=== PATIENT | female | born 1945 | race Caucasian/White ===

== ENCOUNTER 2016-04-26 11:59 | Outpatient (CLI) | payer MEDICARE, OTHER ==
[2015-01-20 11:00] VITALS: BP 127/76
[2016-04-26 12:22] LABS: BASOPHILS % 0.6 (0.0-1.5); EOSINOPHILS % 2.2 % (0.0-6.8); LYMPHOCYTES # 2.4 # k/uL (0.6-4.0); MEAN CORPUSCULAR HEMOGLOBIN 35.7 pg (28.0-34.0); MONOCYTES # 0.8 # k/uL (0.0-0.9); MONOCYTES % 7.3 % (0.0-11.0); NEUTROPHILS # 7.7 # k/uL (1.4-7.7)
[2016-04-26 14:55] LABS: APPEARANCE,URINE Clear (CLEAR); COLOR,URINE Yellow (YELLOW); OCCULT BLOOD,URINE Trace-intact (NEGATIVE); UROBILINOGEN URINE 0.2 Eu (0.2-1.0)
[2016-04-26 15:02] LABS: AMORPHOUS SEDIMENT,UR FEW (NEGATIVE)
[2016-04-26 21:31] LABS: TOTAL PROTEIN 7.3 g/dL (6.0-8.5)
== END 2016-04-26 12:00 ==
LOC: LAB 11:59
PROVIDERS: ATTEND Family Medicine
DX: I10 Essential (primary) hypertension (principal); D64.9 Anemia, unspecified; R10.13 Epigastric pain; R10.9 Unspecified abdominal pain
CPT/HCPCS: 36415; 80053; 81002; 82150; 85025

== ENCOUNTER 2016-05-10 15:27 | Outpatient (CLI) | payer MEDICARE, OTHER ==
[2015-01-20 11:00] VITALS: BP 127/76
--- NOTE | 2016-05-10 16:42 | Diagnostic Imaging Report ---
[facility] [address] [facility] [address] [address] Report Submission Date: May 10, 2016 4:39:31 PM CYLINDER FILLER Patient Study Name: CHANDLER MCCULLOUGH Date: May 10, 2016 3:37:58 PM CYLINDER FILLER Modality Type: CR Gender: F Description: PELVIS : 47 Institution: [facility] Physician: PEMA BRIAN - OP AP view of the pelvis Clinical history: Chronic pelvic and back pain There is moderate osteoarthrosis of both hip joints. No fracture, dislocation or bone destruction. Low back surgery with hardware and graft material is seen in the lower lumbar region. Impression: Moderate osteoarthrosis of both hip joints Status post lumbar spine surgery with hardware and graft material are seen Electronically signed on May 10, 2016 4:39:31 PM CYLINDER FILLER by: Keenan AGUILERA
--- NOTE | 2016-05-10 17:06 | Diagnostic Imaging Report ---
[facility] [address] [facility].[address] [id number] Report Submission Date: May 10, 2016 5:03:26 PM CHIEF ANALYTICS OFFICER Patient Study Name: CHANDLER MCCULLOUGH Date: May 10, 2016 3:39:45 PM CHIEF ANALYTICS OFFICER Modality Type: CR Gender: F Description: SPINE : 47 Institution: [facility] Physician: BRIAN MCADAMS - OP Lumbar spine 4 views Clinical history: Chronic low back pain, prior back surgery Mild levoscoliosis. Hardware extending from T12 down to S1 . Disc spacer at L2/L3, L3/L4 and L4 /L5 . Degenerated narrowed disc at L5/S1 . All hardware is in good position . Thoracic spondylosis with post laminectomy at L2 L3, L4 . Impression: Mild levoscoliosis, osteoarthrosis with status post laminectomy . Hardware extending from T12 down to S1 No fractures Electronically signed on May 10, 2016 5:03:26 PM CHIEF ANALYTICS OFFICER by: Keenan AGUILERA
== END 2016-05-10 15:30 ==
LOC: RAD 15:27
PROVIDERS: ATTEND Family Medicine
DX: M25.551 Pain in right hip (principal); M54.5 Low back pain
CPT/HCPCS: 72110; 72170

== ENCOUNTER 2016-06-21 12:20 | Outpatient (CLI) | payer MEDICARE, OTHER ==
[2015-01-20 11:00] VITALS: BP 127/76
[~2016-06-21 12:20] MED LIST: 0.9 % SODIUM CHLORIDE PF 10 ML VIAL IJ ONE; BUPIVACAINE HCL/PF 2.5 MG/ML 10ML VIAL IV ONE; Lidocaine 1% 5ml(IM or SUTURE)(PAIN CLINIC) ONE; TRIAMCINOLONE ACETONID 40MG/ML VIAL ONE
--- NOTE | 2016-07-06 15:12 | HISTORY AND PHYSICAL REPORT ---
REFERRING PHYSICIAN: Dr. Mo Blanchard Dear Mo: HISTORY OF PRESENT ILLNESS: I had the opportunity of seeing Sabrina Estrada today as an outpatient at [facility]. This is a very nice 71-year-old white female who presents with axial low back pain and right hip pain radiating into both legs in to both feet. She was seen some time in the remote past by my former partner , Dr. Pan, who had treated her. She also was seen by Dr. Rod Londono and had a surgical decompression done prior to that by Dr. Terry for surgical decompression. She says the back and legs hurt. She was started on prednisone 5 mg daily and that seemed to help. She has also realized physical therapy, nonsteroidal antiinflammatories, and Tylenol. She says the pain can be as severe as 10 over 10 on a visual analog scale or as low as 6 over 10 on a visual analog scale. She has a history of rheumatoid arthritis and osteoarthritis that has been treated by Dr. Rizvi. She says the pain is worse with lying down and worse with being on her feet. PAST MEDICAL HISTORY: 1. History of rheumatoid arthritis. 2. Osteoarthritis. 3. Breast cancer. 4. Trochanteric bursitis. 5. Hypertension. 6. Crohn's disease. PAST SURGICAL HISTORY: 1. Left lumpectomy. 2. Basal cell carcinoma removed from her face. 3. Cataracts removed with lens implants. 4. Hand surgery x3. 5. Lumbar surgeries x6. Five of those by Dr[address] Rod Londono, the last one in 2009. 6. Previous lumbar injections by Dr. Pan prior to 2009. CURRENT DAILY MEDICATIONS: 1. Aspirin 81 mg daily. 2. Digestive probiotic 250 mg daily. 3. Calcium 600 mg daily. 4. Vitamin D 400 mg daily. 5. Multivitamin daily. 6. Atenolol 50 mg b.i.d. 7. Lisinopril 40 mg daily. 8. Eluxadoline 100 mg b.i.d. 9. Potassium 20 mEq b.i.d. 10. HCTZ 25 mg daily. 11. Prednisone 5 mg b.i.d. 12. Meclizine 25 mg p.r.n. ALLERGIES: 1. Codeine. 2. General anesthesia causes nausea and vomiting. SOCIAL HISTORY: She denies tobacco, alcohol, or recreational drugs. Unknown marital status. Unknown occupation or employment status. FAMILY HISTORY: Father with cardiovascular disease, diabetes, and multiple skin cancers. Mother with DJD. REVIEW OF SYSTEMS: In the past month or so, she has had no complaints. Pain is worsened with lying flat and with walking. Pain is improved with frequently changing positions. PHYSICAL EXAMINATION: Vital Signs: BP: 130/82, P: 60, R: 16, T: 97.5, oxygen saturation 96% on room air. General: The patient is well nourished, well developed, and in no apparent distress. Awake, alert, and oriented. HEENT: Pupils are equal, round, and reactive to light and accommodation. Extraocular movements intact. No facial droop. Neck: There is full range of motion of the cervical spine. No evidence of adenopathy. Thyroid is nontender, no enlarged. Carotids are without bruits. Chest: Clear to auscultation bilaterally. Normal. Chest excursion. Heart: Regular rate and rhythm without murmur. Abdomen: Benign. Normoactive bowel sounds. Motor/sensory: Intact in the upper and lower extremities. Moves all extremities freely. Back: There are normal cervical, thoracic and lumbar curvatures. There are negative sacroiliac joint findings bilaterally. No evidence of pain or tenderness over the facet joints. Negative piriformis bilaterally. Negative straight leg raise. No evidence of dermatomal weakness or numbness in the lower extremities. Bilateral negative femoral nerve stretch. Patellar tendons are 2+ and equal bilaterally. ASSESSMENT: 1. Lumbar radiculitis. 2. History of neurogenic claudication. PLAN: Plan for caudal epidural steroid injection today under fluoroscopy. cc: Dr. Mo AGUILERA
--- NOTE | 2016-07-06 15:27 | CAUDAL ESI WITH FLUORO ---
REFERRING PHYSICIAN: Dr. Mo Blanchard PROCEDURE: Caudal epidural steroid injection under fluoroscopy. DESCRIPTION OF PROCEDURE: The risks and benefits of a caudal epidural steroid injection were explained to the patient, including the risk of infection, bleeding, nerve injury, worsened pain, failure to relieve pain, spinal headache or steroid exposure risks, including hyperglycemia, hypertension, osteoporosis, and increased infectious risks. The patient understood the risks and agreed to proceed. The patient was positioned prone on the fluoroscopic procedure table and a sterile prep and drape were applied. Under AP and lateral fluoroscopic imaging , a number 25-gauge needle was advanced into the cornu of the sacrum and into the sacral hiatus. Under direct visualization, contrast was placed which revealed adequate spread within the caudal epidural space and following this, triamcinolone mixed with lidocaine and bupivacaine and preservative-free saline was placed. The needle was withdrawn. The patient tolerated the procedure well. There were no apparent complications. She was discharged home in good condition. ASSESSMENT: 1. Lumbar radiculitis. 2. History of neurogenic claudication. FOLLOW UP: Patient is to call for complications or worsened pain. cc: Dr. Mo AGUILERA
== END 2016-06-21 12:21 ==
LOC: OUT 12:20
PROVIDERS: ATTEND Anesthesiology Pain Medicine
DX: M54.16 Radiculopathy, lumbar region (principal); Z86.69 Personal history of other diseases of the nervous system and sense organs
CPT/HCPCS: J3301; J3490; 99214; G0463

== ENCOUNTER 2016-07-19 10:16 | Outpatient (CLI) | payer MEDICARE, OTHER ==
[2015-01-20 11:00] VITALS: BP 127/76
--- NOTE | 2016-07-20 15:39 | CAUDAL ESI WITH FLUORO ---
SUBJECTIVE: Ms. Estrada comes in today in follow up. She is much improved after a caudal epidural injection. She said she is still having some back and hip pain and she has a history of an L4-L5 and L5-S1 fusion. PLAN: I plan today to repeat the caudal epidural steroid injection and then follow her up on an as needed basis. PROCEDURE: Caudal epidural steroid injection: DESCRIPTION OF PROCEDURE: The risks and benefits of a caudal epidural steroid injection were explained to the patient, including the risk of infection, bleeding, nerve injury, worsened pain, failure to relieve pain, spinal headache or steroid exposure risks, including hyperglycemia, hypertension, osteoporosis, and increased infectious risks. The patient understood the risks and agreed to proceed. The patient was placed on the fluoroscopy table in the prone position with a pillow underneath the abdomen. The caudal area was cleaned. AP and lateral fluoroscopic views were obtained, identifying the sacrum and sacral hiatus. The caudal epidural space was accessed from a percutaneous approach at the sacral hiatus with an 25-gauge, 1-1/5 inch needle. On entering the caudal epidural space, it was verified that there was no aspiration of blood or CSF or urine. Furthermore, the needle tip location was verified with lateral and AP fluoroscopic views. Omnipaque 240 myelogram dye was injected through the needle. The distribution of the dye was noted to be within the desired distribution within the caudal epidural space. At this point, triamcinolone acetate and 1% lidocaine was injected into the caudal epidural space. The stylette was replaced in the needle and the needle was subsequently removed from the back. The patient tolerated the procedure without adverse sequelae. The sacral area was cleaned and a bandage was applied over the injection site. The patient was then monitored for 20 minutes following the procedure, during which time the vital signs remained stable and no adverse sequelae were noted or reported. The patient was discharged home with a warehouse driver and was in good condition on discharge. ASSESSMENT: Lumbar radiculitis/neuritis. FOLLOW UP: Follow her up on an as-needed basis. cc: Dr. Mo AGUILERA
== END 2016-07-19 10:17 ==
LOC: OUT 10:16
PROVIDERS: ATTEND Anesthesiology Pain Medicine
DX: M54.16 Radiculopathy, lumbar region (principal)
CPT/HCPCS: J3301; Q9966; 99214; G0463

== ENCOUNTER 2016-08-23 10:15 | Outpatient (CLI) | payer MEDICARE, OTHER ==
[2015-01-20 11:00] VITALS: BP 127/76
--- NOTE | 2016-08-23 14:30 | CAUDAL ESI WITH FLUORO ---
REFERRING PHYSICIAN: Dr. Mo Blanchard Dear Mo: SUBJECTIVE: I had the opportunity of following up with Ms. Estrada today. She follows up after a caudal epidural steroid injection and she is much improved. She is still having some low back pain and I am going to plan on repeating a caudal epidural steroid injection today under fluoroscopy and follow her up on an as needed basis or if her symptoms should worsen or reoccur. PROCEDURE: Caudal epidural steroid injection under fluoroscopy. DESCRIPTION OF PROCEDURE: The risks and benefits of a caudal epidural steroid injection were explained to the patient, including the risk of infection, bleeding, nerve injury, worsened pain, failure to relieve pain, spinal headache or steroid exposure risks, including hyperglycemia, hypertension, osteoporosis, and increased infectious risks. The patient understood the risks and agreed to proceed. The patient was placed on the fluoroscopy table in the prone position with a pillow underneath the abdomen. The caudal area was cleaned. AP and lateral fluoroscopic views were obtained, identifying the sacrum and sacral hiatus. The caudal epidural space was accessed from a percutaneous approach at the sacral hiatus with a 25-gauge 1-1/2-inch needle. On entering the caudal epidural space , it was verified that there was no aspiration of blood or CSF or urine. Furthermore, the needle tip location was verified with lateral and AP fluoroscopic views. Omnipaque 240 myelogram dye was injected through the needle. The distribution of the dye was noted to be within the desired distribution within the caudal epidural space. The patient did report some reproduction of pain symptoms; this reproduction of symptoms was short-lived. Triamcinolone acetate and 1% lidocaine was injected into the caudal epidural space. The stylette was replaced in the needle and the needle was subsequently removed from the back. The patient tolerated the procedure without adverse sequelae. The sacral area was cleaned and a bandage was applied over the injection site. The patient was then monitored for 20 minutes following the procedure, during which time the vital signs remained stable and no adverse sequelae were noted or reported. The patient was discharged home with a mixer driver and was in good condition on discharge. ASSESSMENT: 1. Lumbosacral radiculitis/neuritis. 2. Failed laminectomy pain syndrome. PLAN: Caudal epidural steroid injection under fluoroscopy. FOLLOW UP: Follow up on a p.r.n. basis or if her symptoms should worsen or reoccur. cc: Dr. Mo AGUILERA
== END 2016-08-23 10:16 ==
LOC: OUT 10:15
PROVIDERS: ATTEND Anesthesiology Pain Medicine
DX: M54.16 Radiculopathy, lumbar region (principal)
CPT/HCPCS: 99214; G0463; J3301; Q9966

== ENCOUNTER 2016-11-15 18:28 | Emergency (ER) | payer MEDICARE, OTHER ==
[2016-11-15] MEDS: 0.9 % SODIUM CHLORIDE 1,000 ML IV ONE (18:42)
[2016-11-15] MEDS: ONDANSETRON HCL/PF 4 MG/ 2ML VIAL IVP ONE (18:45)
--- NOTE | 2016-11-15 18:48 | ED Physician Documentation ---
Nausea/Vomiting/Diarrhea - HISTORIAN Historian: patient - HPI Chief Complaint: Nausea,Vomiting,Diarrhea Onset: other (yesterday) Timing: worse Context: denies: out of country travel, bad food, recent trauma Severity: severe Further Comments: yes (71 year old female patient presents with complaint of watery diarrhea since yesterday, reports nausea and vomiting today. Unable to keep down po's today, unable to take daily meds today due to Nausea. C/O generalized abdominal pain.) - Associated Symptoms Vomiting: mild Diarrhea: watery Abdominal Pain: cramping, aching, moderate, diffuse - ROS CONST: denies: fever, sweating, chills CVS/RESP: denies: chest pain, shortness of breath, cough, dry cough, non- productive cough, productive cough, bloody cough GI/: none. denies: constipation, black stools, bloody urine, bloody stools, dark urine, problems urinating EYES/ENT: none MS/SKIN/LYMPH: denies: joint pain, leg swelling, rash, swollen glands, ankle swelling, other NEURO/PSYCH: none - PAST HX Past History: other (Aneursym "between pancreas and spleen, stented") Other History: IBS (IBSD), hypertension, other (History of breast CA, OA, RA, Crohns) Surgeries/Procedures: hysterectomy, other (Lumbar x 6) Allergies/Adverse Reactions: Allergies Allergy/AdvReac Type Severity Reaction Status Date / Time alosetron Allergy Verified 11/15/16 19:04 rifaximin [From Xifaxan] Allergy Verified 11/15/16 19:04 codeine AdvReac Mild Hyperactivi Verified 11/15/16 20:10 ty Home Medications: Ambulatory Orders Medication Instructions Recorded Calcium Carb 600Mg/Vit D-3 400 1 each PO DAILY 06/02/14 [Caltrate with Vit D-3] Multivitamin [Tab-A-Leonel] 1 each PO DAILY 06/02/14 Viberzi 100 mg PO BID u2 09/01/15 Acetaminophen/Diphenhydramine 2 tab PO PM 11/15/16 [Tylenol Pm Ex-Strength Caplet] Chlorthalidone [Thalitone] 25 mg PO DAILY 11/15/16 L.acidoph & Paracasei,B.lactis 1 tab PO AM 11/15/16 [Probiotic] Meclizine HCl [Meclizine HCl] 25 mg PO Q6 PRN 11/15/16 - SOCIAL HX Smoking History: non-smoker - FAMILY HX Family History: denies: none - VITAL SIGNS Vital Signs: Vital Signs Temp Pulse Resp BP Pulse Ox 98.7 F 96 H 16 164/123 97 11/15/16 18:55 11/15/16 18:55 11/15/16 18:55 11/15/16 18:55 11/15/16 23:00 - REVIEWED ASSESSMENTS Nursing Assessment Reviewed: Yes Vitals Reviewed: Yes Progress - Progress Progress: Medicated with zofran for nausea on arrival Continued nausea - second dose of zofran IV given. Reviewed lab and CT findings with patient and ; recommended transfer to higher level of care for continue IV fluids, antibiotics and evaluation of gall stone. Patient prefers transfer to [place]. 2203 [facility] to [place] [phone] Doan, requested Magnesium level; lab is send out. - EKG/XRAY/CT EKG: rhythm (Sinus arrhythmia, rate 70, occassional PVC on dev ops engineer) ED Results Lab/Radiology - Lab Results Lab Results: Lab Results 11/15/16 11/15/16 18:51 18:51 WBC 13.60 K/ul H K/ul (4.00-12.00) RBC 4.01 M/ul M/ul (3.90-5.20) Hgb 13.8 g/dL g/dL (12.0-16.0) Hct 41.1 % % (34.5-46.5) MCV 102.6 fl H fl (80.0-100.0) MCH 34.5 pg H pg (28.0-34.0) MCHC 33.7 g/dL g/dL (30.0-36.0) RDW 12.5 % % (11.3-14.3) Plt Count 294 K/mm3 K/mm3 (130-400) Neut % (Auto) 64.9 % % (39.0-79.0) Lymph % (Auto) 23.0 % % (16.0-50.0) [place] % (Auto) 6.8 % % (0.0-11.0) Eos % (Auto) 2.8 % % (0.0-6.8) Baso % (Auto) 0.6 (0.0-1.5) Neut # (Auto) 8.8 # k/uL H # k/uL (1.4-7.7) Lymph # (Auto) 3.1 # k/uL # k/uL (0.6-4.0) [place] # (Auto) 0.9 # k/uL # k/uL (0.0-0.9) Eos # (Auto) 0.4 # k/uL # k/uL (0.0-0.6) Baso # (Auto) 0.1 # k/uL # k/uL (0.0-0.5) Reactive Lymphs % 1.8 % % (0.0-5.0) Reactive Lymphs # 0.2 # k/uL # k/uL (0.0-0.8) Sodium 138 mmol/L mmol/L (136-145) Potassium 2.6 mmol/L L mmol/L (3.5-5.0) Chloride 101 mmol/L mmol/L (98-110) Carbon Dioxide 24 mmol/L mmol/L (20-32) BUN 12 mg/dL mg/dL (10-26) Creatinine 0.6 mg/dL mg/dL (0.4-1.5) Estimated Creat Clear 106 Est GFR ( Amer) > 60 (60 - ) Est GFR (Non-Af Amer) > 60 (60 - ) Glucose 117 mg/dL H mg/dL (70-99) Calcium 9.8 mg/dL mg/dL (8.5-10.5) Total Bilirubin 0.9 mg/dL mg/dL (0.2-1.2) AST 27 U/L U/L (0-41) ALT 20 U/L U/L (0-45) Alkaline Phosphatase 58 U/L U/L (46-116) Total Protein 7.3 g/dL g/dL (6.0-8.5) Albumin 4.5 g/dL g/dL (3.0-5.5) - Radiology Radiology Impressions: Examination: CT Abdomen/pelvis History: Generalized abdominal discomfort Comparison exams: None available Technique: CT Abdomen/pelvis with IV protocol. Findings: Liver demonstrates diffuse low attenuation. Cyst within the left hepatic lobe. Spleen, adrenals, pancreas, and kidneys are without gross irregularity. No abnormal enhancement. Gallbladder is slightly prominent with faint gallstones near the fundus. Left kidney inferior calyx calcification. Ureters do not appear to be dilated in their course of through the abdomen and pelvis. No central calcification. Numerous pelvic phleboliths. Significant streak artifact from metal artifact within the left upper abdomen adjacent to the spleen. Abdominal aorta demonstrates mild peripheral atherosclerotic disease. No aneurysm. Bowel unopacified limiting evaluation. Few small bowel air fluid levels with mild luminal prominence. Stool within the large bowel limiting sensitivity. No mesenteric inflammatory changes or free fluid. Osseous structures demonstrate degenerative changes. Lumbar fixation hardware with streak artifact. Lung bases demonstrate significant scarring and atelectasis. No effusion. Impression: 1. Prominent gallbladder with fundal gallstones. No adjacent inflammatory changes. Consider obtaining right upper quadrant ultrasound if clinically warranted. 2. Left nephrolithiasis. No ureterolithiasis. 3. Few small bowel air fluid levels with some mild luminal prominence - mild enteritis. 4. Fatty liver. Extensive lung base scarring and atelectasis. No effusion. Electronically signed on Nov 15, 2016 9:12:19 PM CDT by: Justus Prater - Orders Orders: ED Orders Category Date Time Status Continuous Pulse Oximetry Q30M Care 11/15/16 19:[address] IV Lock 1T Care 11/15/16 18:[address] ABD & PELVIS W/ CON Stat Exams 11/15/16 Completed BLOOD CULTURE Stat Lab 11/15/16 Ordered CBC/PLATELET/DIFF Stat Lab 11/15/16 18:51 Completed CMP Stat Lab 11/15/16 18:51 Completed UA W/MICRO IF INDICATED Stat Lab 11/15/16 18:41 Ordered 0.9 % Sodium Chloride [Normal Saline] 1,000 ml Med 11/15/16 18:41 Discontinued IV NOW 0.9 % Sodium Chloride [Sodium Chloride] 50 ml Med 11/15/16 22:08 Discontinued IV .STK-MED Ondansetron HCl/Pf [Zofran 4 mg/2 ml] Med 11/15/16 18:41 Discontinued 4 mg IVP NOW ONE [facility] Med 11/15/16 22:09 Discontinued 1 each MC .STK-MED ONE Piperacillin Sodium/Tazobactam [Zosyn] Med 11/15/16 22:07 Discontinued 3.375 gm IV .STK-MED ONE Piperacillin Sodium/Tazobactam [Zosyn] 3.375 gm Med 11/15/16 22:00 Ordered 0.9 % Sodium Chloride [Sodium Chloride] 50 ml IV Q6 Potas Chlor 20 in D5-1/2Ns [D51/4SIBWF27] 1,000 ml Med 11/15/16 22:00 Ordered IV Q8H Potassium Chloride [Klor-Con 20 Meq/10Ml] Med 11/15/16 19:45 Discontinued 20 meq IV NOW ONE EKG WITH COMPARISON Stat Ther 11/15/16 19:52 Ordered Nausea Physical Exam - EXAM General Appearance: moderate distress EENT: eye inspection normal, ENT inspection normal, pharynx normal, no signs of dehydration, MARIA DE JESUS, no nystagmus, TM's nml Respiratory: no resp distress, chest non-tender, breath sounds normal CVS: reg rate & rhythm, heart sounds normal, equal pulses, no murmur, no gallop , PMI nml, no JVD, no friction rub, 24 Abdomen: tenderness (generalized), guarding, abnml bowel sounds, other ( generalized tenderness - diffuse; worse in epigastic and LLQ). 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 Neuro/Psych: oriented X3, CN's nml as tested, motor nml, sensation nml, mood/ affect nml Discharge Clincal Impression: Hypokalemia Nausea and vomiting Qualifiers: Vomiting type: unspecified Vomiting Intractability: non-intractable Qualified Code(s): R11.2 - Nausea with vomiting, unspecified Cholelithiasis Qualifiers: Cholelithiasis location: gallbladder Cholecystitis presence: without cholecystitis Biliary obstruction: without biliary obstruction Qualified Code(s) : K80.20 - Calculus of gallbladder without cholecystitis without obstruction Diarrhea Qualifiers: Diarrhea type: unspecified type Qualified Code(s): R19.7 - Diarrhea, unspecified Referrals: Mo Blanchard MD [Primary Care Provider] - 2 Days Home Medications: Ambulatory Orders Calcium Carb 600Mg/Vit D-3 400 [Caltrate with Vit D-3] 1 each PO DAILY 06/02/14 Multivitamin [Tab-A-Leonel] 1 each PO DAILY 06/02/14 Viberzi 100 mg PO BID u2 09/01/15 Acetaminophen/Diphenhydramine [Tylenol Pm Ex-Strength Caplet] 2 tab PO PM Chlorthalidone [Thalitone] 25 mg PO DAILY 11/15/16 L.acidoph & Paracasei,B.lactis [Probiotic] 1 tab PO AM 11/15/16 Meclizine HCl [Meclizine HCl] 25 mg PO Q6 PRN 11/15/16 Condition: Stable Disposition: 02 XFER SHT-TRM HOSP Decision to Admit: NO Decision Time: 23:01
[2016-11-15 19:02] LABS: BASOPHILS % 0.6 (0.0-1.5); EOSINOPHILS % 2.8 % (0.0-6.8); MEAN CORPUSCULAR HEMOGLOBIN 34.5 pg (28.0-34.0); MEAN CORPUSCULAR VOLUME 102.6 fl (80.0-100.0); MONOCYTES % 6.8 % (0.0-11.0); NEUTROPHILS # 8.8 # k/uL (1.4-7.7)
[2016-11-15 19:13] LABS: eGFR (African) > 60; eGFR (Non-African) > 60
--- NOTE | 2016-11-15 21:25 | Diagnostic Imaging Report ---
ISABELA DONALD (FLOWER) - ER~ [facility] [address] [address] ~ ~ ~ ~ Report Submission Date: Nov 15, 2016 9:12:19 PM CDT Patient ~ Study Name: CHANDLER MCCULLOUGH ~ Date: Nov 15, 2016 8:20:30 PM CDT ~ Modality Type: CT\SR Gender: F ~ Description: CT ABD & PELVIS W/ CON : 47 ~ Institution: [facility] Physician: ISABELA DONALD (FLOWER) - ER ~ ~ ~ ~ Examination: CT Abdomen/pelvis History: Generalized abdominal discomfort Comparison exams: None available Technique: CT Abdomen/pelvis with IV protocol.~ Findings:~ Liver demonstrates diffuse low attenuation. Cyst within the left hepatic lobe. Spleen, adrenals, pancreas, and kidneys are without gross irregularity.~No abnormal enhancement. Gallbladder is slightly prominent with faint gallstones near the fundus. Left kidney inferior calyx calcification. Ureters do not appear to be dilated in their course of through the abdomen and pelvis. No central calcification. Numerous pelvic phleboliths. Significant streak artifact from metal artifact within the left upper abdomen adjacent to the spleen. Abdominal aorta demonstrates mild peripheral atherosclerotic disease. No aneurysm. Bowel unopacified limiting evaluation. Few small bowel air fluid levels with mild luminal prominence. Stool within the large bowel limiting sensitivity. No mesenteric inflammatory changes or free fluid. Osseous structures demonstrate degenerative changes. Lumbar fixation hardware with streak artifact. Lung bases demonstrate significant scarring and atelectasis. No effusion. Impression: Prominent gallbladder with fundal gallstones. No adjacent inflammatory changes. Consider obtaining right upper quadrant ultrasound if clinically warranted. Left nephrolithiasis. No ureterolithiasis. Few small bowel air fluid levels with some mild luminal prominence - mild enteritis. Fatty liver. Extensive lung base scarring and atelectasis. No effusion. ~ Electronically signed on Nov 15, 2016 9:12:19 PM CDT by: Justus AGUILERA
[2016-11-15] MEDS ORDERED: PIPERACILLIN SODIUM/TAZOBACTAM 3.375 GM VIAL IV ONE (22:07)
[2016-11-15] MEDS ORDERED: 0.9 % SODIUM CHLORIDE 50 ML IV ONE (22:08)
[2016-11-15] MEDS ORDERED: PHARMACY KEY 1 EACH EACH MC ONE (22:09)
[2016-11-15] MEDS: POTASSIUM CHLORIDE 20 MEQ/10ML VIAL IV ONE (22:15)
[2016-11-15] MEDS: POTAS CHLOR 20 IN D5-1/2NS 1,000 ML IV SCH (22:35)
[2016-11-15] MEDS: PIPERACILLIN SODIUM/TAZOBACTAM 3.375 GM in 0.9 % SODIUM CHLORIDE 50 ML IV SCH (22:35)
[2016-11-15 23:42] VITALS: BP 148/70
== END 2016-11-15 23:39 | disposition short-term general hospital (02) ==
LOC: ED 18:28
DX: E87.6 Hypokalemia (principal); R11.2 Nausea with vomiting, unspecified; K80.20 Calculus of gallbladder without cholecystitis without obstruction
CPT/HCPCS: 74177; 80053; 85025; 87040; 93005; J2405; J2543; J3480; J7030; J7070; Q9966; 96361; 96365; 96366; 96375; 99284; S1016

== ENCOUNTER 2016-11-29 14:54 | Outpatient (CLI) | payer MEDICARE, OTHER ==
[2016-11-29 15:46] LABS: eGFR (African) > 60; eGFR (Non-African) > 60
== END 2016-11-29 14:55 ==
LOC: LAB 14:54
PROVIDERS: ATTEND Family Medicine
DX: E83.42 Hypomagnesemia (principal); E87.6 Hypokalemia; I10 Essential (primary) hypertension
CPT/HCPCS: 36415; 80048; 83735

== ENCOUNTER 2017-05-03 11:57 | Outpatient (CLI) | payer MEDICARE, OTHER ==
[~2017-05-03 11:57] MED LIST changes: -BUPIVACAINE HCL/PF 2.5 MG/ML 10ML VIAL IV ONE
--- NOTE | 2017-05-04 09:43 | CAUDAL ESI WITH FLUORO ---
SUBJECTIVE: Mrs. Estrada follows up with me today in clinic. This is a patient with a history of a large lumbar decompression, fusion, and instrumentation. She did well after a caudal epidural steroid injection last year. She says the pain is beginning to return in the low back and bilateral hips in the same fashion that it was previously. She had a very good response to a caudal epidural injection and she follows up today for a repeat injection under fluoroscopy. Plan today for a caudal injection. PROCEDURE: Caudal epidural steroid injection under fluoroscopic guidance. DESCRIPTION OF PROCEDURE: The risks and benefits of a caudal epidural steroid injection were explained to the patient, including the risk of infection, bleeding, nerve injury, worsened pain, failure to relieve pain, spinal headache or steroid exposure risks, including hyperglycemia, hypertension, osteoporosis, and increased infectious risks. The patient understood the risks and agreed to proceed. The patient was placed on the fluoroscopy table in the prone position with a pillow underneath the abdomen. The caudal area was cleaned and lateral fluoroscopic views were obtained, identifying the sacrum and sacral hiatus. The caudal epidural space was accessed from a percutaneous approach at the sacral hiatus with a 25-gauge 1- inch needle. On entering the caudal epidural space, it was verified that there was no aspiration of blood or CSF or urine. Furthermore, the needle tip location was verified with lateral and AP fluoroscopic views. Omnipaque 240 myelogram dye was injected through the needle. The distribution of the dye was noted to be within the desired distribution within the caudal epidural space. At this point, the medication was injected. The stylette was replaced in the needle and the needle was subsequently removed from the back. The patient tolerated the procedure without adverse sequelae. The sacral area was cleaned and a bandage was applied over the injection site. The patient was then monitored for 20 minutes following the procedure, during which time the vital signs remained stable and no adverse sequelae were noted or reported. 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 ASSESSMENT: 1. Lumbar radiculitis/neuritis. 2. Failed back surgery syndrome. PLAN: Caudal epidural steroid injection with fluoroscopic guidance. FOLLOW UP: Patient is to call for complications or worsened pain. cc: Dr. Mo AGUILERA
== END 2017-05-03 12:00 ==
LOC: OUT 11:57
PROVIDERS: ATTEND Anesthesiology Pain Medicine
DX: M54.16 Radiculopathy, lumbar region (principal); M96.1 Postlaminectomy syndrome, not elsewhere classified
CPT/HCPCS: J3301; Q9966; 62323; G0463

== ENCOUNTER 2017-05-18 14:06 | Outpatient (CLI) | payer MEDICARE, OTHER ==
[2017-05-18 14:56] LABS: eGFR (African) > 60; eGFR (Non-African) > 60
== END 2017-05-18 14:07 ==
LOC: LAB 14:06
PROVIDERS: ATTEND Family Medicine
DX: I10 Essential (primary) hypertension (principal); E83.42 Hypomagnesemia
CPT/HCPCS: 36415; 80053; 83735

== ENCOUNTER 2017-05-31 11:12 | Outpatient (CLI) | payer MEDICARE, OTHER ==
--- NOTE | 2017-06-06 13:36 | CAUDAL ESI WITH FLUORO ---
SUBJECTIVE: Ms. Estrada follows up today with a history of a lumbar fusion and bilateral lower extremity pain consistent with radiculitis. She is here for a follow up caudal injection. The initial caudal provided her with a great deal of relief and she would like a repeat caudal injection today. PROCEDURE: Caudal epidural steroid injection under fluoroscopic guidance. DESCRIPTION OF PROCEDURE: The risks and benefits of a caudal epidural steroid injection were explained to the patient, including the risk of infection, bleeding, nerve injury, worsened pain, failure to relieve pain, spinal headache or steroid exposure risks, including hyperglycemia, hypertension, osteoporosis, and increased infectious risks. The patient understood the risks and agreed to proceed. The patient was placed on the fluoroscopy table in the prone position with a pillow underneath the abdomen. The caudal area was cleaned. AP and lateral fluoroscopic views were obtained, identifying the sacrum and sacral hiatus. The caudal epidural space was accessed from a percutaneous approach at the sacral hiatus with a needle. On entering the caudal epidural space, it was verified that there was no aspiration of blood or CSF or urine. Furthermore, the needle tip location was verified with lateral and AP fluoroscopic views. Omnipaque 240 myelogram dye was injected through the needle. The distribution of the dye was noted to be within the desired distribution within the caudal epidural space. At this point, the medication was injected into the caudal epidural space. The stylette was replaced in the needle and the needle was subsequently removed from the back. The patient tolerated the procedure without adverse sequelae. The sacral area was cleaned and a bandage was applied over the injection site. The patient was then monitored for 20 minutes following the procedure, during which time the vital signs remained stable and no adverse sequelae were noted or reported. 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 ASSESSMENT: 1. Lumbosacral radiculitis/neuritis. 2. Failed laminectomy pain syndrome. PLAN: Caudal epidural steroid injection under fluoroscopy guidance. FOLLOW UP: Patient is to call for complications or worsened pain. cc: Dr. Mo AGUILERA
== END 2017-05-31 11:13 ==
LOC: OUT 11:12
PROVIDERS: ATTEND Anesthesiology Pain Medicine
DX: M54.17 Radiculopathy, lumbosacral region (principal)
CPT/HCPCS: 62323; 99213; G0463; J3301; Q9966

== ENCOUNTER 2017-06-08 09:32 | Outpatient (CLI) | payer MEDICARE, OTHER ==
--- NOTE | 2017-06-08 19:15 | Diagnostic Imaging Report ---
JAY AMAYA [facility] [id number] [facility] [address] [place] [address]. [id number] Report Submission Date: Jun 08, 2017 10:17:15 AM CDT Patient Study Name: CHANDLER MCCULLOUGH Date: Jun 08, 2017 9:44:58 AM CDT Modality Type: CT\SR Gender: F Description: CT L-SPINE W/O CONTRAS : 47 Institution: [facility] Physician: JAY AMAYA Examination: CT lumbar spine History: CT L-SPINE, LUMBAR RADICULITIS, HX OF BACK PAIN AND BACK SURGERIES SINCE 2009, PT STATES DUE TO ARTHRITIS (Hx) / LUMBAR RADICULITIS (DICOM Hx) Comparison exams: None provided. Technique: CT lumbar spine axial imaging with sagittal and coronal reconstruction Findings: Sagittal reconstruction demonstrates extensive posterior fixation hardware extending from T12 through S1. Multilevel disc replacement. Diffuse osteopenia. L4/L5 listhesis. Disc space narrowing and disc vacuum phenomena L5/ S1. Extensive posterior laminectomy surgical changes. Aortic vascular calcifications. Lung base pleural thickening and scarring. Possible fluid density within the operative site at the level of L2/L3. Axial imaging obtained from T12 through the sacrum. Extensive artifact from fixation hardware. Multilevel degenerative changes. Elongation of the central canal at L4/L5. No prevertebral soft tissue abnormality. Impression: Exam sensitivity limited due to artifact. Extensive postsurgical changes. Possible operative bed fluid collection/seroma at the level of L2/L3. Better assessment for the degree of central canal and/or nerve encroachment could be obtained with lumbar myelogram. Electronically signed on Jun 08, 2017 10:17:15 AM CDT by: Justus AGUILERA
== END 2017-06-08 09:33 ==
LOC: RAD 09:32
PROVIDERS: ATTEND Anesthesiology Pain Medicine
DX: M54.16 Radiculopathy, lumbar region (principal)
CPT/HCPCS: 72131

== ENCOUNTER 2018-03-24 09:26 | Outpatient (CLI) | payer MEDICARE, OTHER ==
[2018-03-24 09:59] LABS: BASOPHILS % 0.4 (0.0-1.5); MEAN CORPUSCULAR HEMOGLOBIN 33.6 pg (28.0-34.0); MONOCYTES % 11.8 % (0.0-11.0); NEUTROPHILS # 4.4 # k/uL (1.4-7.7)
[2018-03-24 10:05] LABS: eGFR (Non-African) > 60
== END 2018-03-24 09:35 ==
LOC: LAB 09:26
PROVIDERS: ATTEND Internal Medicine Gastroenterology
DX: K50.00 Crohn's disease of small intestine without complications (principal); R53.83 Other fatigue
CPT/HCPCS: 36415; 80053; 85025; 86140

== ENCOUNTER 2018-06-20 15:54 | Outpatient (CLI) | payer MEDICARE, OTHER ==
[2018-06-21 09:09] LABS: eGFR (Non-African) > 60
[2018-06-22 07:31] LABS: MEAN CORPUSCULAR HEMOGLOBIN 34.4 pg (28.0-34.0)
[2018-06-22 07:32] LABS: BASOPHILS % 0.7 % (0.0-1.5); EOSINOPHILS % 1.9 % (0.0-6.8); MONOCYTES % 9.4 % (0.0-11.0); NEUTROPHILS # 6.7 # k/uL (1.4-7.7)
== END 2018-06-20 15:59 | disposition home or self-care (01) ==
LOC: LAB 15:54
PROVIDERS: ATTEND Internal Medicine Rheumatology
DX: M05.70 Rheumatoid arthritis with rheumatoid factor of unspecified site without organ or systems involvement (principal); Z79.899 Other long term (current) drug therapy; Z92.22 Personal history of monoclonal drug therapy
CPT/HCPCS: 36415; 80053; 85025; 85651; 86140